=== PATIENT | female | born 1955 | race Caucasian/White ===

== ENCOUNTER → 2016-09-23 | Outpatient (CLI) | payer BC ==
--- NOTE | 2016-09-23 11:21 | DX ---
Bilateral hands, 2 views each side. History: Evaluate arthritis. Comparison examination: September 23, 2016. Findings: No fracture identified. Normal alignment. Joint spaces are maintained. Soft tissues sarah ear unremarkable. Minimal erosive changes involving the second metatarsal carpal heads appear unchanged. Impression: Stable bilateral hand radiographs.
== END ==
LOC: BMCIMAGING 10:16
PROVIDERS: ATTEND Internal Medicine Rheumatology
DX: M05.841 Other rheumatoid arthritis with rheumatoid factor of right hand (principal); M05.842 Other rheumatoid arthritis with rheumatoid factor of left hand

== ENCOUNTER → 2018-07-18 | Outpatient (CLI) | payer BC | LOC: BMCIMAGING 14:13 | PROVIDERS: ATTEND Internal Medicine Rheumatology | DX: M15.4 Erosive (osteo)arthritis (principal) ==